=== PATIENT | male | born 1990 | race Caucasian/White ===

== ENCOUNTER 2020-02-26 16:57 | Outpatient (CLI) | payer BC | END 2020-02-26 23:59 | disposition home or self-care (01) | LOC: LAB 16:57 | PROVIDERS: ATTEND Nurse Practitioner Family | DX: J02.9 Acute pharyngitis, unspecified (principal); Z20.828 Contact with and (suspected) exposure to other viral communicable diseases | CPT/HCPCS: 81599 ==

== ENCOUNTER 2020-10-30 11:26 | Outpatient (CLI) | payer BC ==
[2020-10-30 18:35] LABS: BASOPHILS % (AUTO) 0.4 %; EOSINOPHILS # (AUTO) 0.1 10^3/uL (0.0-0.7); EOSINOPHILS % (AUTO) 0.8 %; HCT - HEMATOCRIT 46.8 % (42.0-52.0); LYMPHOCYTES # (AUTO) 2.1 10^3/uL (1.5-3.5); LYMPHOCYTES % (AUTO) 28.3 %; MEAN CORPUSCULAR HEMOGLOBIN 28.6 pg (27.0-31.0); MEAN CORPUSCULAR HGB CONC 34.2 g/dL (32.0-36.0); MEAN CORPUSCULAR VOLUME 83.7 fL (80.0-94.0); MEAN PLATELET VOLUME 12.5 fL (7.4-11.4); MONOCYTES # (AUTO) 0.6 10^3/uL (0.0-1.0); MONOCYTES % (AUTO) 7.5 %; NEUTROPHILS # (AUTO) 4.6 10^3/uL (1.5-6.6); NEUTROPHILS % (AUTO) 62.6 %; PLT - PLATELET COUNT 262 10^3/uL (130-450); RED BLOOD COUNT 5.59 10^6/uL (4.70-6.10); RED CELL DISTRIBUTION WIDTH 13.2 % (12.0-15.0); WHITE BLOOD COUNT 7.4 x10^3/uL (4.8-10.8)
[2020-10-30 19:18] LABS: % IRON SATURATION 25 % (20-50); ALBUMIN 4.4 g/dL (3.2-5.5); ALBUMIN/GLOBULIN RATIO 1.3 (1.0-2.2); ALKALINE PHOSPHATASE 68 IU/L (42-121); ALT ALANINE AMINOTRANSFERASE 26 IU/L (10-60); AST ASPARTATE AMINOTRANSFERASE 17 IU/L (10-42); BUN - BLOOD UREA NITROGEN 19 mg/dL (6-20); CALCIUM 9.7 mg/dL (8.5-10.3); CARBON DIOXIDE - CO2 25 mmol/L (21-32); CHLORIDE 98 mmol/L (101-111); CHOL/HDL RATIO 6.1 (<5.0); CHOLESTEROL 224 mg/dL; CREATININE 0.6 mg/dL (0.6-1.2); GFR - MDRD 157 (>89); GLUCOSE 355 mg/dL (70-100); HDL CHOLESTEROL 37 mg/dL; IRON 100 ug/dL (45-182); LDL CHOLESTEROL,CALCULATED 117 mg/dL; LDL/HDL RATIO 3.2 (<3.6); POTASSIUM 4.1 mmol/L (3.5-5.0); SODIUM 135 mmol/L (135-145); TOTAL IRON BINDING CAPACITY 400 ug/dL (250-450); TOTAL PROTEIN 7.8 g/dL (6.7-8.2); TRANSFERRIN 286 mg/dL (180-329); TRIGLYCERIDES 350 mg/dL; VLDL CHOLESTEROL 70 mg/dL
[2020-10-30 19:20] LABS: CREATININE,URINE 75.9 mg/dL; MICROALBUM/CREATININE RATIO,UR 204.2 ug/mg (<30.0); MICROALBUMIN,URINE 15.5 mg/dL (0-300.0)
[2020-10-30 19:21] LABS: THYROID STIMULATING HORMONE 1.44 uIU/mL (0.34-5.60)
[2020-10-30 19:27] LABS: FERRITIN 312.3 ng/mL (23.9-336.2)
[2020-10-30 19:36] LABS: ESTIMATED AVERAGE GLUCOSE 315 mg/dL (70-100); HEMOGLOBIN A1c% 12.6 % (4.27-6.07)
== END 2020-10-30 23:59 | disposition home or self-care (01) ==
LOC: LAB.WCP 11:26
PROVIDERS: ATTEND Internal Medicine
DX: E11.9 Type 2 diabetes mellitus without complications (principal)
CPT/HCPCS: 36415; 80053; 80061; 82043; 82570; 82728; 83036; 83540; 83721; 84443; 84466; 85025

== ENCOUNTER 2022-11-11 07:58 | Outpatient (CLI) | payer BC ==
--- NOTE | 2022-11-11 13:10 | Ultrasound Report ---
PROCEDURE: Abdomen Complete INDICATIONS: CHRONIC DIARRHEA TECHNIQUE: Real-time scanning was performed of the abdominal and retroperitoneal organs, with image documentatio n. COMPARISON: None. FINDINGS: Liver: Liver is normal in size and homogeneous in echotexture. Gallbladder: Unremarkable. Biliary ducts: Intrahepatic bile ducts are non-dilated. Extrahepatic bile duct caliber measures 2.8 mm. Normal is 6-7 mm or less in diameter, or 10 mm or less post-cholecystectomy. Pancreas: Not well visualized due to overlying bowel gas. Spleen: Spleen is borderline enlarged. Kidneys: Kidneys are normal in size and echotexture. Right kidney measures 15.3 cm long; left kidne y measures 13.5 cm long. No hydronephrosis or nephrolithiasis. No solid masses. Aorta: Visualized aorta is normal in caliber at less than 3 cm. Iliacs: Proximal common iliac arteries are normal in caliber at less than 2.5 cm. IVC: Intrahepatic inferior vena cava is patent. Miscellaneous: No free abdominal fluid. IMPRESSION: 1.No acute abnormality. 2.Pancreas not well visualized. 3.Borderline splenomegaly. Reviewed by: Thomas Reyes on 11/11/2022 1:08 PM PDT Approved by: Thomas Reyes on 11/11/2022 1:08 PM PDT Station ID: [id number]
== END 2022-11-11 07:59 | disposition home or self-care (01) ==
LOC: DI 07:58
PROVIDERS: ATTEND Internal Medicine
DX: R19.7 Diarrhea, unspecified (principal); R16.1 Splenomegaly, not elsewhere classified